=== PATIENT | female | born 1945 | race Caucasian/White ===

== ENCOUNTER → 2018-08-30 | Outpatient (CLI) | payer MEDICARE, BC ==
--- NOTE | 2018-09-02 14:41 | BMR ---
EXAMINATION TYPE: MR breast BILAT wo/w con DATE OF EXAM: 08/30/2018 COMPARISON: Outside mammogram dated 06/06/2018 and bilateral breast ultrasound dated 06/28/2018. HISTORY: Breast mass, left breast upper outer TECHNIQUE: A series of fat and water weighted images in the long and short axis views of both breasts are obtained in conjunction with dynamic contrast MRI with subtraction technique. The patient was i njected with 5.5 mL intravenous Gadavist gadolinium contrast. Three-dimensional and additional post processing imaging is created on independent workstation and reviewed during official interpretation of this study. FINDINGS: The breasts are composed of extreme fibroglandular tissue. There is minimal symmetric background pare nchymal enhancement. Ductal prominence and scattered subcentimeter cysts are seen bilaterally. The previously seen upper o uter quadrant left breast mass on the outside ultrasound is not visualized on MRI. There is no suspic ious mass or nonmass enhancement. Central inferior susceptibility artifact is seen within the left br east. There is no axillary, internal mammary, or intramammary adenopathy. No abnormal skin thickening is ap preciated. IMPRESSION: BI-RADS 1-No MRI evidence of malignancy within either breast. The previously seen suspici ous mass in the upper outer quadrant of the left breast on the outside ultrasound is not reproducible on MRI. However, given the outside images, repeat ultrasound is recommended and if findings are repr oduced ultrasound-guided biopsy should be performed.
== END | disposition home or self-care (01) ==
LOC: RADMRIMAIN 12:32
PROVIDERS: ATTEND Surgery
DX: N63.21 Unspecified lump in the left breast, upper outer quadrant (principal)
CPT/HCPCS: 0159T; C8908; A9581; 77059